=== PATIENT | male | born 1975 | race Caucasian/White ===

== ENCOUNTER 2017-08-15 22:10 | Inpatient (IN) ==
[2017-08-15] MEDS ORDERED: *HR* Promethazine 25 MG/ML VIAL IVP ONE (22:16)
[2017-08-15] MEDS ORDERED: 0.9 % Sodium Chloride 1,000 ML IVC ONE (22:29)
[2017-08-15 22:39] LABS: Basophils % 0.2 %; Hemoglobin 15.6 g/dL (12.9-16.9); Immature Granulocytes % 0.2 % (0-4); Lymphocytes # 0.7 K/mcL (0.6-4.6); Lymphocytes % 7.7 %; Mean Corpuscular HGB Conc 33.2 g/dL (31.6-35.5); Mean Corpuscular Hemoglobin 32.2 pg (28.0-33.3); Mean Corpuscular Volume 96.9 fL (83.0-100.0); Mean Platelet Volume 10.9 fL (9.4-12.4); Monocytes # 0.8 K/mcL (0.0-1.3); Monocytes % 9.8 %; Platelet Count 205 K/mcL (140-400); Red Blood Count 4.85 M/mcL (4.19-5.50); Red Cell Distribution Width 12.8 % (11.5-14.5); Segmented Neutrophils % 82.1 %
[2017-08-15 22:42] LABS: VBG HCO3 12 mEq/L (21-27); VBG PCO2 34 mmHg (41-51); VBG PH 7.15 pH Units (7.32-7.42); VBG PO2 48 mmHg (25-50)
[2017-08-15 22:47] LABS: Activated Partial Thrombo Time 29.5 Seconds (26.0-36.0)
[2017-08-15 22:58] LABS: Bilirubin,Urine Negative (Negative); Blood,Urine Negative (Negative); Clarity,Urine Clear (Clear); Color,Urine Yellow (Yellow); Glucose,Urine (UA) >=1000 mg/dL (Normal); Ketones,Urine 80 mg/dL (Negative); Leukocyte Esterase,Urine Negative (Negative); Nitrite,Urine Negative (Negative); PH,Urine 5.5 pH Units (5.0-8.0); Protein,Urine Negative (Neg-Trace); Specific Gravity,Urine > 1.030 (1.010-1.025); Urobilinogen,Urine Normal (Normal)
[2017-08-15 23:15] LABS: Albumin 4.2 g/dL (3.5-5.7); Albumin/Globulin Ratio 1.3 (1.1-2.2); Bilirubin,Direct 0.2 mg/dL (0.0-0.2); Bilirubin,Indirect 0.3 mg/dL (0.0-1.2); Bilirubin,Total 0.5 mg/dL (0.3-1.0); Calcium 9.6 mg/dL (8.6-10.3); Globulin 3.3 g/dL (2.4-3.5); Total Protein 7.5 g/dL (6.4-8.9); Troponin I 0.05 ng/mL (< 0.04)
--- NOTE | 2017-08-15 23:15 | Emergency Department Note ---
Disposition Clinical Impression: DKA (diabetic ketoacidoses) Qualifiers: Diabetes mellitus type: type 1 Diabetes mellitus complication detail: without coma Qualified Code(s): E10.10 - Type 1 diabetes mellitus with ketoacidosis without coma Disposition: Admitted As Inpatient Condition: Undetermined Referrals: Garth Fortune MD [Primary Care Provider] - General Adult HPI - General Chief complaint: ED Nausea/Vomiting/Diarrhea Stated complaint: N/V Time Seen by Provider: 08/15/17 22:15 Source: patient Mode of arrival: private vehicle Limitations: no limitations Nursing Notes Reviewed: Yes Vital Signs Reviewed: Yes - History of Present Illness HPI Narrative: 42-year-old male with a history of type 1 diabetes presents emergency department for evaluation of nausea and vomiting for the last 2 days. Patient states for the last few days he has had several episodes of emesis and that it appears no matter whether he eats or not, and he also becomes sick if he moves quickly. Patient denies recent illness, fever, chills. Patient states he is unable to eat, drink. He denies constipation, diarrhea, chest pain, syncope, edema, difficulty breathing, cough, wheezes. Patient takes 70/30 insulin twice a day a 25 units he sign. Has not taken his 70/30 insulin this evening. Onset (ago): day(s) Location: abdomen Radiation: non-radiation Pain Severity: severe Pain Scale: 8 Consistency: constant Associated symptoms: Reports: other (see HPI) - Related Data Home Medications Medication Instructions Recorded Confirmed Gabapentin [Neurontin] 300 mg PO BID 02/20/16 02/20/16 Insulin LISPRO [Humalog] 0 unit SQ AD PRN 02/20/16 02/20/16 Insulin Pump/Infus. Set/Meter 0.75 unit CONT 02/21/16 02/21/16 Previous Rx's Medication Instructions Recorded Ondansetron [Zofran] 8 mg PO Q8HR PRN #10 tablet 06/09/16 Ibuprofen [Motrin] 600 mg PO Q8HR PRN #10 tab 08/27/16 Albuterol Sulfate [Albuterol 2 puff IH Q4HR PRN #1 hfa.[email or web address] 04/01/17 Inhaler] levoFLOXacin [Levaquin] 750 mg PO DAILY #5 tablet 04/01/17 Allergies Allergy/AdvReac Type Severity Reaction Status Date / Time No Known Allergies Allergy Verified 04/01/17 07:52 All systems ED: reviewed and negative except as stated. Review of Systems: As Per HPI Constitutional: Denies: fever, chills, weakness Cardiovascular: Denies: chest pain, palpitations, edema, syncope Respiratory: Denies: cough, dyspnea, wheezes, hemoptysis, sputum production Gastrointestinal: Denies: abdominal pain, nausea, vomiting, diarrhea, constipation Neurological: Reports: weakness. Denies: headache, numbness, paresthesias, confusion, abnormal gait Past Medical History - Past Medical History Attestation: Yes The following information was validated with the patient. Source: patient Medical history: Reports: diabetes Surgical history: Reports: vasectomy Psychiatric history: Reports: no psych history - Social History Smoking Status: Current every day smoker Smokeless Tobacco Status: No Alcohol use: Reports: rarely Drug use: Reports: none Physical Exam - General Limitations: no limitations General appearance: alert, in distress, cachectic - Head Head exam: atraumatic, normocephalic, normal inspection - Eye Eye exam: Present: normal appearance, PERRL, EOMI - ENT ENT exam: mucous membranes dry - Neck Neck exam: Present: normal inspection, full ROM - Chest Chest inspection: Present: normal inspection, symmetric chest wall rise - Respiratory Respiratory exam: Present: normal lung sounds bilaterally - Cardiovascular Cardiovascular exam: Present: regular rate, normal rhythm, normal heart sounds - Abdominal Exam Abdominal exam: Present: soft, tenderness. Absent: Non-Tender, distention, guarding, rebound, rigidity Abdominal tenderness: Present: diffuse, moderate - Expanded Lower Extremity Exam Neurovascular/Tendon exam: Present: normal capillary refill. Absent: pulse deficit - Neurological Exam Neurological exam: Present: alert, oriented X3 - Psychiatric Psychiatric exam: Present: normal affect - Skin Skin exam: Present: warm, dry, intact, normal color Course Course Narrative: 42-year-old male presents emergency department for evaluation of nausea, vomiting for the last 2 days. He has been able to tolerate any by mouth intake. Patient appears ill, lethargic, very thin and frail appearing. Respirations are tachypneic partially 28-30 respirations minute, shallow, . Alert and oriented 3. Diffuse abdominal tenderness, no organomegaly, masses. Patient noted with active vomiting, bile colored Lungs clear to auscultate a heart rate tachycardia at 1:30, EKG reveals atrial tachycardia with a flutter. Point of care glucose greater than 600. Immediate concern for diabetic ketoacidosis; consider causes for DKA that could include pneumonia, KS, UTI. We will check labs, EKG, urine, treat nausea and reevaluate. - Reevaluation(s) Reevaluation #1: Labs returned with a pH 7.15, bicarbonate 12, blood glucose 713, troponin 0.05, lactic acid 3.3, potassium 6, sodium 129, BHA greater than 2.00. No sign of anemia, leukocytosis. Patient in DKA, we will initiate insulin drip as potassium will be able to sustain, give 5 units insulin now, continue fluid boluses; will admit to hospitalist services for DKA, acute kidney injury, elevated troponin; excepted to hospitalist services at this time. Time: 23:34 Vital Signs Temperature 97.8 F 08/15/17 22:11 Pulse Rate 130 08/15/17 22:11 Respiratory Rate 14 08/15/17 22:11 Blood Pressure 126/90 08/15/17 22:11 O2 Sat by Pulse Oximetry 96 08/15/17 22:11 Temperature 97.8 F 08/15/17 22:11 Pulse Rate 130 08/15/17 22:11 Respiratory Rate 14 08/15/17 22:11 Blood Pressure 126/90 08/15/17 22:11 O2 Sat by Pulse Oximetry 96 08/15/17 22:11 Oxygen Delivery Oxygen Delivery Room Air Medical Decision Making - Lab Data Result diagrams: 08/15/17 22:16 Lab Results 08/15/17 08/15/17 08/15/17 Range/Units 22:16 22:18 22:18 WBC 8.5 (4.3-11.1) K/mcL RBC 4.85 (4.19-5.50) M/mcL Hgb 15.6 (12.9-16.9) g/dL Hct 47.0 (37.5-50.1) % MCV 96.9 (83.0-100.0) fL MCH 32.2 (28.0-33.3) pg MCHC 33.2 (31.6-35.5) g/dL RDW 12.8 (11.5-14.5) % Plt Count 205 (140-400) K/mcL MPV 10.9 (9.4-12.4) fL Immature Gran % 0.2 (0-4) % Seg Neutrophils % 82.1 % Lymphocytes % 7.7 % Monocytes % 9.8 % Eosinophils % 0.0 % Basophils % 0.2 % Neutrophils # 7.0 (1.6-8.9) K/mcL Lymphocytes # 0.7 (0.6-4.6) K/mcL Monocytes # 0.8 (0.0-1.3) K/mcL Eosinophils # 0.0 (0.0-0.6) K/mcL Basophils # 0.0 (0.0-0.2) K/mcL PT 11.0 (9.4-12.1) Seconds INR 1.0 APTT 29.5 (26.0-36.0) Seconds VBG pH (7.32-7.42) pH Units VBG pCO2 (41-51) mmHg VBG pO2 (25-50) mmHg VBG HCO3 (21-27) mEq/L Lactic Acid (0.5-2.2) mmol/L Beta-Hydroxybutyric Acd > 2.00 H (0.02-0.27) mmol/L Urine Color (Yellow) Urine Clarity (Clear) Urine pH (5.0-8.0) pH Units Ur Specific Welch (1.010-1.025) Urine Protein (Neg-Trace) mg/dL Urine Glucose (UA) (Normal) mg/dL Urine Ketones (Negative) mg/dL Urine Blood (Negative) Urine Nitrite (Negative) Urine Bilirubin (Negative) Urine Urobilinogen (Normal) mg/dL Ur Leukocyte Esterase (Negative) Ur Culture Indicated? (NO) Person Notif of Crit 08/15/17 08/15/17 08/15/17 Range/Units 22:29 22:37 22:40 WBC (4.3-11.1) K/mcL RBC (4.19-5.50) M/mcL Hgb (12.9-16.9) g/dL Hct (37.5-50.1) % MCV (83.0-100.0) fL MCH (28.0-33.3) pg MCHC (31.6-35.5) g/dL RDW (11.5-14.5) % Plt Count (140-400) K/mcL MPV (9.4-12.4) fL Immature Gran % (0-4) % Seg Neutrophils % % Lymphocytes % % Monocytes % % Eosinophils % % Basophils % % Neutrophils # (1.6-8.9) K/mcL Lymphocytes # (0.6-4.6) K/mcL Monocytes # (0.0-1.3) K/mcL Eosinophils # (0.0-0.6) K/mcL Basophils # (0.0-0.2) K/mcL PT (9.4-12.1) Seconds INR APTT (26.0-36.0) Seconds VBG pH 7.15 L* (7.32-7.42) pH Units VBG pCO2 34 L (41-51) mmHg VBG pO2 48 (25-50) mmHg VBG HCO3 12 L (21-27) mEq/L Lactic Acid 3.3 H (0.5-2.2) mmol/L Beta-Hydroxybutyric Acd (0.02-0.27) mmol/L Urine Color Yellow (Yellow) Urine Clarity Clear (Clear) Urine pH 5.5 (5.0-8.0) pH Units Ur Specific Welch > 1.030 H (1.010-1.025) Urine Protein Negative (Neg-Trace) mg/dL Urine Glucose (UA) >=1000 H (Normal) mg/dL Urine Ketones 80 H (Negative) mg/dL Urine Blood Negative (Negative) Urine Nitrite Negative (Negative) Urine Bilirubin Negative (Negative) Urine Urobilinogen Normal (Normal) mg/dL Ur Leukocyte Esterase Negative (Negative) Ur Culture Indicated? NO (NO) Person Notif of David lord
[2017-08-15] MEDS ORDERED: Insulin LISPRO 300 UNITS/3 ML VIAL SQ PRN (23:16)
[2017-08-15] MEDS ORDERED: *HR* Dextrose 50 % in Water (Syg) 50 ML SYRINGE IVP PRN ×2 (23:16→23:45)
[2017-08-15] MEDS ORDERED: Insulin Human Regular 100 UNIT in 0.9 % Sodium Chloride 100 ML IVC SCH (23:30)
[2017-08-15 23:45] LABS: Magnesium 2.7 mg/dL (1.6-2.6); Phosphorous 7.3 mg/dL (2.7-4.5)
[2017-08-15] MEDS ORDERED: Naloxone 0.4 MG/ML INJ IVP PRN (23:45)
--- NOTE | 2017-08-15 23:49 | Internal Med History&Physical ---
<Deandre Purcell - Last Filed: 08/16/17 00:48> Date of Encounter: 08/16/17 Time of Encounter: 23:49 Internal Medicine - H&P: HPI Chief complaint: Nausea and vomiting Admitted From: Emergency Dept Plans for Post Hospital Care: Home History of present illness: Mr. Gong is a 42 year old male with history of insulin-dependent type 1 diabetes mellitus who presented to the ED with 1 day history of nausea and vomiting. He says that yesterday he began feeling nauseated and started vomiting uncontrollably, he has not been able to hold any food or water down since. Nothing seemed to preempt this illness, and he says that he has had no recent illness or viral infection to his knowledge. Associated with this, he does say that he has some abdominal pain which is generalized which started at approximately the time that he began having the symptoms to begin with. Nothing seems to make these symptoms better or worse. It is not worsened by food. The pain is all over his abdomen and does not seem to radiate anywhere. He does use subcutaneous insulin twice a day and he says that his blood glucose has been around 120 every day up until yesterday at which time it started to elevate. He is having no other symptoms at this time. He denies chest pains, shortness of breath, cough, nasal congestion, diarrhea. He denies alcohol use, says that he smokes a few cigarettes a day, and denies any drug use. Past Med Surg Social Fam HX - Past Medical History Medical history: diabetes Psychiatric history: no psych history - Past Surgical History Surgical History: vasectomy - Social History Smoking Status: Current every day smoker Smokeless Tobacco Status: No Alcohol use: rarely Drug use: none - Family History Mother Living Status: Still Living Internal Medicine - H&P: Meds Insulin LISPRO [HumaLOG] 20 units SQ BID 08/15/17 [History] 3 Allergy/AdvReac Type Severity Reaction Status Date / Time No Known Allergies Allergy Verified 04/01/17 07:52 All Systems PM: A 10-system review of systems was performed and is negative for pertinent findings except as documented above in the HPI. Review of systems: Constitutional: Denies fevers, weight loss, generalized fatigue. Admits to chills which started yesterday Head/Neck: Denies VENEGAS, neck stiffness EENT: Denies vision changes/blurriness, rhinorrhea, congestion, sore throat CVS: Denies chest pain, palpitations, THRASHER, orthopnea, edema, PND Pulm: Denies SOB, cough, sputum, hemoptysis, wheezing GI: Admits to generalized abdominal pain, nausea, retractable vomiting : Denies dysuria, increased frequency, urgency, hematuria Heme: Denies ease of bleeding or bruising MSK: Denies joint pain, limited ROM Skin: Denies rashes, ulcers, color changes Neuro: Denies VENEGAS, paresthesias, focal deficits, ataxia - Constitutional Vitals: Temp Pulse Resp BP Pulse Ox 97.8 F 130 14 126/90 96 08/15/17 22:11 08/15/17 22:11 08/15/17 22:11 08/15/17 22:11 08/15/17 22:11 Exam: Gen: Vitals noted. Appears red and mildly distressed. The patient is frail and thin appearing HEENT: PERRL, oropharynx clear, Normocephalic, atraumatic Neck: Supple. No adenopathy. Cardiac: RRR but rapid, no murmur, +S1/S2 Pulmonary: Lung sounds are diminished in the left base Abdomen: Generally soft but with voluntary guarding on palpation generally Back: Nontender throughout. MSK: ROM intact, no joint swelling noted Extremities: no BLE edema, nontender calf, no cyanosis or clubbing Neuro: A&Ox3, moves all extremities, no focal deficits Psych: Affect is flat Internal Med - H&P Results - Labs CBC & Chem 7: 08/15/17 22:16 08/15/17 22:16 - Assessment and plan (1) DKA (diabetic ketoacidosis) Current Visit: Yes Status: Acute Assessment and plan: MARYA, Dr. mcfarland unknown Patient presents with blood glucose of 713, pH 7.15 with anion gap 26 The patient does appear volume depleted on examination and he is tachycardic We will start the patient with a total of a 2 L bolus and then initiate 250mL/ hr fluids per DKA protocol I will check CXR and Blood cultures for possible infectious source Zofran for nausea Qualifiers: Diabetes mellitus type: type 1 Diabetes mellitus complication detail: without coma Qualified Code(s): E10.10 - Type 1 diabetes mellitus with ketoacidosis without coma (2) Acute hyperkalemia Current Visit: Yes Status: Acute Assessment and plan: Potassium is 6.0, likely secondary to DKA We will initiate IV insulin infusion for DKA, which will likely resolve potassium Monitor Q4H BMPs (3) SARAH (acute kidney injury) Current Visit: Yes Status: Acute Assessment and plan: Acute kidney injury secondary to hypovolemia Serum cr 1.73, baseline appears to be ~ 1.0 We will aggressively rehydrate the patient and monitor UOP and BMPs Avoid nephrotoxic agents (4) Tobacco use disorder Current Visit: Yes Status: Chronic Assessment and plan: Nicotine patches (5) DVT prophylaxis Current Visit: Yes Status: Acute Assessment and plan: SQ Lovenox - Time Spent With Patient Total time spent is greater than 50% in coordination of care (as documented) at patient's floor/unit and/or counseling patient: <Meli Moses - Last Filed: 08/16/17 03:14> Date of Encounter: 08/16/17 Internal Medicine - H&P: HPI History of present illness: Mr. Gong is a 42 year old male All Systems PM: A 10-system review of systems was performed and is negative for pertinent findings except as documented above in the HPI. - Constitutional Vitals: Temp Pulse Resp BP Pulse Ox 98.0 F 112 20 120/67 94 08/16/17 00:30 08/16/17 00:30 08/16/17 00:30 08/16/17 00:30 08/16/17 00:30 Internal Med - H&P Results - Labs CBC & Chem 7: 08/15/17 22:16 08/16/17 00:51 Labs: BMP 08/16/17 00:51 Sodium 131 L Potassium 4.9 Chloride 98 Carbon Dioxide 10 L* BUN 44 H Creatinine 1.65 H Glucose 610 H* Calcium 8.7 - Impressions ITS Impressions Chest X-Ray 08/16/17 00:29 IMPRESSION: Left basilar nodularity may represent an atypical pneumonia. D/ / Osito Greer MD / Osito Greer MD Interpreting Provider: Osito Greer MD - Attending Attestation I have seen and examined this patient independently. I have discussed with resident physician Dr. Purcell regarding the management plan. Agree with the documentation. - Time Spent With Patient Total time spent is greater than 50% in coordination of care (as documented) at patient's floor/unit and/or counseling patient:
--- NOTE | 2017-08-16 00:03 | Emergency Department Note ---
Disposition Clinical Impression: DKA (diabetic ketoacidoses) Qualifiers: Diabetes mellitus type: type 1 Diabetes mellitus complication detail: without coma Qualified Code(s): E10.10 - Type 1 diabetes mellitus with ketoacidosis without coma Disposition: Admitted As Inpatient Condition: Undetermined General Adult HPI - General Chief complaint: ED Nausea/Vomiting/Diarrhea Stated complaint: N/V Time Seen by Provider: 08/15/17 22:15 Source: patient Mode of arrival: private vehicle Limitations: no limitations Nursing Notes Reviewed: Yes Vital Signs Reviewed: Yes - History of Present Illness Location: abdomen Pain Scale: 0 Associated symptoms: Reports: other (see HPI) - Related Data Home Medications Medication Instructions Recorded Confirmed Insulin LISPRO [HumaLOG] 20 units SQ BID 08/15/17 08/15/17 Allergies Allergy/AdvReac Type Severity Reaction Status Date / Time No Known Allergies Allergy Verified 04/01/17 07:52 Constitutional: Denies: fever, chills, weakness Cardiovascular: Denies: chest pain, palpitations, edema, syncope Respiratory: Denies: cough, dyspnea, wheezes, hemoptysis, sputum production Gastrointestinal: Denies: abdominal pain, nausea, vomiting, diarrhea, constipation Neurological: Reports: weakness. Denies: headache, numbness, paresthesias, confusion, abnormal gait Past Medical History - Past Medical History Medical history: Reports: diabetes Surgical history: Reports: vasectomy Psychiatric history: Reports: no psych history - Social History Smoking Status: Current every day smoker Smokeless Tobacco Status: No Alcohol use: Reports: rarely Drug use: Reports: none Physical Exam - General Limitations: no limitations General appearance: alert, in distress, cachectic Course Vital Signs Temperature 97.8 F 08/15/17 22:11 Pulse Rate 130 08/15/17 22:11 Respiratory Rate 14 08/15/17 22:11 Blood Pressure 126/90 08/15/17 22:11 O2 Sat by Pulse Oximetry 96 08/15/17 22:11 Temperature 97.8 F 08/15/17 22:11 Pulse Rate 130 08/15/17 22:11 Respiratory Rate 16 08/15/17 23:55 Blood Pressure 120/65 08/15/17 23:55 O2 Sat by Pulse Oximetry 96 08/15/17 22:11 Oxygen Delivery Oxygen Delivery Room Air Medical Decision Making - Lab Data Result diagrams: 08/15/17 22:16 08/15/17 22:16 Lab Results 08/15/17 08/15/17 08/15/17 Range/Units 22:16 22:16 22:18 WBC 8.5 (4.3-11.1) K/mcL RBC 4.85 (4.19-5.50) M/mcL Hgb 15.6 (12.9-16.9) g/dL Hct 47.0 (37.5-50.1) % MCV 96.9 (83.0-100.0) fL MCH 32.2 (28.0-33.3) pg MCHC 33.2 (31.6-35.5) g/dL RDW 12.8 (11.5-14.5) % Plt Count 205 (140-400) K/mcL MPV 10.9 (9.4-12.4) fL Immature Gran % 0.2 (0-4) % Seg Neutrophils % 82.1 % Lymphocytes % 7.7 % Monocytes % 9.8 % Eosinophils % 0.0 % Basophils % 0.2 % Neutrophils # 7.0 (1.6-8.9) K/mcL Lymphocytes # 0.7 (0.6-4.6) K/mcL Monocytes # 0.8 (0.0-1.3) K/mcL Eosinophils # 0.0 (0.0-0.6) K/mcL Basophils # 0.0 (0.0-0.2) K/mcL PT 11.0 (9.4-12.1) Seconds INR 1.0 APTT 29.5 (26.0-36.0) Seconds VBG pH (7.32-7.42) pH Units VBG pCO2 (41-51) mmHg VBG pO2 (25-50) mmHg VBG HCO3 (21-27) mEq/L Sodium 129 L (136-145) mEq/L Potassium 6.0 H (3.5-5.1) mEq/L Chloride 92 L (98-107) mEq/L Carbon Dioxide 11 L (23-29) mEq/L BUN 42 H (6-20) mg/dL Creatinine 1.73 H (0.70-1.30) mg/dL Est GFR ( Amer) 53 L (> 60) Est GFR (Non-Af Amer) 43 L (> 60) BUN/Creatinine Ratio 24 (6-26) Glucose 713 H* (70-105) mg/dL Calculated Osmolality 313 H (280-300) Lactic Acid (0.5-2.2) mmol/L Calcium 9.6 (8.6-10.3) mg/dL Phosphorus 7.3 H (2.7-4.5) mg/dL Magnesium 2.7 H (1.6-2.6) mg/dL Total Bilirubin 0.5 (0.3-1.0) mg/dL Direct Bilirubin 0.2 (0.0-0.2) mg/dL Indirect Bilirubin 0.3 (0.0-1.2) mg/dL AST 17 (13-39) Units/L ALT 18 (7-52) Units/L Alkaline Phosphatase 97 (34-104) Units/L Troponin I 0.05 H* (< 0.04) ng/mL Serum Total Protein 7.5 (6.4-8.9) g/dL Albumin 4.2 (3.5-5.7) g/dL Globulin 3.3 (2.4-3.5) g/dL Albumin/Globulin Ratio 1.3 (1.1-2.2) Lipase 4 L (11-82) Units/L Beta-Hydroxybutyric Acd (0.02-0.27) mmol/L Urine Color (Yellow) Urine Clarity (Clear) Urine pH (5.0-8.0) pH Units Ur Specific Holt (1.010-1.025) Urine Protein (Neg-Trace) mg/dL Urine Glucose (UA) (Normal) mg/dL Urine Ketones (Negative) mg/dL Urine Blood (Negative) Urine Nitrite (Negative) Urine Bilirubin (Negative) Urine Urobilinogen (Normal) mg/dL Ur Leukocyte Esterase (Negative) Ur Culture Indicated? (NO) Person Notif of Crit 08/15/17 08/15/17 08/15/17 Range/Units 22:18 22:29 22:37 WBC (4.3-11.1) K/mcL RBC (4.19-5.50) M/mcL Hgb (12.9-16.9) g/dL Hct (37.5-50.1) % MCV (83.0-100.0) fL MCH (28.0-33.3) pg MCHC (31.6-35.5) g/dL RDW (11.5-14.5) % Plt Count (140-400) K/mcL MPV (9.4-12.4) fL Immature Gran % (0-4) % Seg Neutrophils % % Lymphocytes % % Monocytes % % Eosinophils % % Basophils % % Neutrophils # (1.6-8.9) K/mcL Lymphocytes # (0.6-4.6) K/mcL Monocytes # (0.0-1.3) K/mcL Eosinophils # (0.0-0.6) K/mcL Basophils # (0.0-0.2) K/mcL PT (9.4-12.1) Seconds INR APTT (26.0-36.0) Seconds VBG pH 7.15 L* (7.32-7.42) pH Units VBG pCO2 34 L (41-51) mmHg VBG pO2 48 (25-50) mmHg VBG HCO3 12 L (21-27) mEq/L Sodium (136-145) mEq/L Potassium (3.5-5.1) mEq/L Chloride (98-107) mEq/L Carbon Dioxide (23-29) mEq/L BUN (6-20) mg/dL Creatinine (0.70-1.30) mg/dL Est GFR ( Amer) (> 60) Est GFR (Non-Af Amer) (> 60) BUN/Creatinine Ratio (6-26) Glucose (70-105) mg/dL Calculated Osmolality (280-300) Lactic Acid 3.3 H (0.5-2.2) mmol/L Calcium (8.6-10.3) mg/dL Phosphorus (2.7-4.5) mg/dL Magnesium (1.6-2.6) mg/dL Total Bilirubin (0.3-1.0) mg/dL Direct Bilirubin (0.0-0.2) mg/dL Indirect Bilirubin (0.0-1.2) mg/dL AST (13-39) Units/L ALT (7-52) Units/L Alkaline Phosphatase (34-104) Units/L Troponin I (< 0.04) ng/mL Serum Total Protein (6.4-8.9) g/dL Albumin (3.5-5.7) g/dL Globulin (2.4-3.5) g/dL Albumin/Globulin Ratio (1.1-2.2) Lipase (11-82) Units/L Beta-Hydroxybutyric Acd > 2.00 H (0.02-0.27) mmol/L Urine Color (Yellow) Urine Clarity (Clear) Urine pH (5.0-8.0) pH Units Ur Specific Holt (1.010-1.025) Urine Protein (Neg-Trace) mg/dL Urine Glucose (UA) (Normal) mg/dL Urine Ketones (Negative) mg/dL Urine Blood (Negative) Urine Nitrite (Negative) Urine Bilirubin (Negative) Urine Urobilinogen (Normal) mg/dL Ur Leukocyte Esterase (Negative) Ur Culture Indicated? (NO) Person Notif of David lord 08/15/17 Range/Units 22:40 WBC (4.3-11.1) K/mcL RBC (4.19-5.50) M/mcL Hgb (12.9-16.9) g/dL Hct (37.5-50.1) % MCV (83.0-100.0) fL MCH (28.0-33.3) pg MCHC (31.6-35.5) g/dL RDW (11.5-14.5) % Plt Count (140-400) K/mcL MPV (9.4-12.4) fL Immature Gran % (0-4) % Seg Neutrophils % % Lymphocytes % % Monocytes % % Eosinophils % % Basophils % % Neutrophils # (1.6-8.9) K/mcL Lymphocytes # (0.6-4.6) K/mcL Monocytes # (0.0-1.3) K/mcL Eosinophils # (0.0-0.6) K/mcL Basophils # (0.0-0.2) K/mcL PT (9.4-12.1) Seconds INR APTT (26.0-36.0) Seconds VBG pH (7.32-7.42) pH Units VBG pCO2 (41-51) mmHg VBG pO2 (25-50) mmHg VBG HCO3 (21-27) mEq/L Sodium (136-145) mEq/L Potassium (3.5-5.1) mEq/L Chloride (98-107) mEq/L Carbon Dioxide (23-29) mEq/L BUN (6-20) mg/dL Creatinine (0.70-1.30) mg/dL Est GFR ( Amer) (> 60) Est GFR (Non-Af Amer) (> 60) BUN/Creatinine Ratio (6-26) Glucose (70-105) mg/dL Calculated Osmolality (280-300) Lactic Acid (0.5-2.2) mmol/L Calcium (8.6-10.3) mg/dL Phosphorus (2.7-4.5) mg/dL Magnesium (1.6-2.6) mg/dL Total Bilirubin (0.3-1.0) mg/dL Direct Bilirubin (0.0-0.2) mg/dL Indirect Bilirubin (0.0-1.2) mg/dL AST (13-39) Units/L ALT (7-52) Units/L Alkaline Phosphatase (34-104) Units/L Troponin I (< 0.04) ng/mL Serum Total Protein (6.4-8.9) g/dL Albumin (3.5-5.7) g/dL Globulin (2.4-3.5) g/dL Albumin/Globulin Ratio (1.1-2.2) Lipase (11-82) Units/L Beta-Hydroxybutyric Acd (0.02-0.27) mmol/L Urine Color Yellow (Yellow) Urine Clarity Clear (Clear) Urine pH 5.5 (5.0-8.0) pH Units Ur Specific Holt > 1.030 H (1.010-1.025) Urine Protein Negative (Neg-Trace) mg/dL Urine Glucose (UA) >=1000 H (Normal) mg/dL Urine Ketones 80 H (Negative) mg/dL Urine Blood Negative (Negative) Urine Nitrite Negative (Negative) Urine Bilirubin Negative (Negative) Urine Urobilinogen Normal (Normal) mg/dL Ur Leukocyte Esterase Negative (Negative) Ur Culture Indicated? NO (NO) Person Notif of Crit Critical Care Time Critical Care Time: No Attestation Statement - Attestation Attestation: I, Michael Lundberg MD, personally evaluated this patient and discussed their management with the midlevel provicer, PAC/WIRE BENDER. I reviewed the midlevel provider 's note and agree with the documented findings, medical decision making, and plan of care. 42-year-old male with history of insulin-dependent diabetes presents complaining of nausea and vomiting yesterday and today. He complains of generalized body aches and pain. Crampy abdominal pain. No fever. No GI bleed symptoms. He has felt mildly short of breath. On examination patient is a well-developed thin male in no acute distress. He is pale and appears ill. No cyanosis or diaphoresis. Breath sounds are clear and equal bilaterally. Heart regular with a moderate tachycardia. Abdomen is soft with increased bowel sounds. Mild diffuse tenderness. Labs reviewed and consistent with DKA. Fluids and insulin infusion initiated. The hospitalist, Dr. Moses, was consulted and accepted admission of the patient.
[2017-08-16] MEDS ORDERED: 0.9 % Sodium Chloride 1,000 ML IVC ONE (00:04)
[2017-08-16] MEDS ORDERED: 0.9 % Sodium Chloride 1,000 ML IVC SCH ×2 (00:15→03:30)
[2017-08-16] MEDS ORDERED: 0.9 % Sodium Chloride 1,000 ML IVC PRN ×2 (00:42→03:24)
[2017-08-16] MEDS ORDERED: Insulin LISPRO 300 UNITS/3 ML VIAL SQ PRN (00:42)
[2017-08-16] MEDS ORDERED: D5% in 0.45% NACL 1,000 ML IVC PRN (00:42)
[2017-08-16] MEDS ORDERED: D5% in 0.45% NACL w KCl 20 MEQ/1,000 ML MLS IVC PRN (00:42)
[2017-08-16] MEDS ORDERED: *HR* Dextrose 50 % in Water (Syg) 50 ML SYRINGE IVP PRN ×2 (00:42→09:08)
[2017-08-16] MEDS ORDERED: Insulin Human Regular 100 UNIT in 0.9 % Sodium Chloride 100 ML IVC SCH (00:45)
[2017-08-16 01:28] LABS: Calcium 8.7 mg/dL (8.6-10.3); Potassium 4.9 mEq/L (3.5-5.1)
[2017-08-16] MEDS: 0.9 % Sodium Chloride w KCl 20 MEQ/1,000 ML MLS IVC PRN ×2 (02:00→04:14)
[2017-08-16 04:57] LABS: ABG Base Excess -7 mEq/L (-2 to 3); ABG HCO3 21 mEq/L (21-27); ABG Oxygen Saturation 89 % (95-98); ABG PCO2 50 mmHg (35-45); ABG PH 7.23 pH Units (7.32-7.45); ABG PO2 68 mmHg (85-104); ABG TCO2 23 mEq/L (20-26)
[2017-08-16 05:08] LABS: BUN/Creatinine Ratio 30 (6-26); Blood Urea Nitrogen 39 mg/dL (6-20); Calcium 8.1 mg/dL (8.6-10.3); Carbon Dioxide 19 mEq/L (23-29); Chloride 108 mEq/L (98-107); Glucose 362 mg/dL (70-105); Osmolality,Calculated 304 (280-300); Potassium 5.2 mEq/L (3.5-5.1); Sodium 135 mEq/L (136-145); eGFR For African Americans > 60 (> 60); eGFR For Non-African Americans > 60 (> 60)
[2017-08-16] MEDS: GuaiFENesin Liq 200 MG/10 ML UDC PO PRN (05:59)
[2017-08-16] MEDS: *HR* Heparin 5,000 UNIT/ML VIAL SQ SCH ×2 (05:59→17:47)
[2017-08-16] MEDS ORDERED: *HR* Enoxaparin 40 MG/0.4 ML SYRINGE SQ SCH (06:00)
[2017-08-16 06:13] LABS: Basophils % 0.3 %; Eosinophils % 0.1 %; Hematocrit 36.8 % (37.5-50.1); Immature Granulocytes % 0.1 % (0-4); Lymphocytes # 1.2 K/mcL (0.6-4.6); Lymphocytes % 16.5 %; Mean Corpuscular HGB Conc 34.2 g/dL (31.6-35.5); Mean Corpuscular Hemoglobin 31.5 pg (28.0-33.3); Mean Platelet Volume 10.1 fL (9.4-12.4); Monocytes # 0.7 K/mcL (0.0-1.3); Monocytes % 9.8 %; Neutrophils # 5.2 K/mcL (1.6-8.9); Platelet Count 191 K/mcL (140-400); Red Cell Distribution Width 12.7 % (11.5-14.5); Segmented Neutrophils % 73.2 %
[2017-08-16 06:15] LABS: Hemoglobin 12.6 g/dL (12.9-16.9)
[2017-08-16 07:35] LABS: Estimated Average Glucose 298 mg/dl
--- NOTE | 2017-08-16 08:50 | Internal Med Progress Note ---
Date of Encounter: 08/16/17 Time of Encounter: 08:30 - Assessment and plan (1) DKA (diabetic ketoacidosis) Current Visit: Yes Status: Acute Assessment and plan: Started on insulin drip overnight for DKA. Gap was reportedly 26. Gap has losed this am to 8. Will transition to subcutaneous short and long acting insulin Qualifiers: Diabetes mellitus type: type 1 Diabetes mellitus complication detail: without coma Qualified Code(s): E10.10 - Type 1 diabetes mellitus with ketoacidosis without coma (2) Community acquired bacterial pneumonia Current Visit: Yes Status: Acute Assessment and plan: CXR shows evidence of basilar nodularity suggestive of atypical pneumonia. f/u blood cultures. Start on ceftriaxone and azithromycin (3) Acute renal failure Current Visit: No Status: Acute Assessment and plan: Iv fluid hydration. Creatinine has improved Qualifiers: Acute renal failure type: unspecified Qualified Code(s): N17.9 - Acute kidney failure, unspecified (4) Acute hyperkalemia Current Visit: Yes Status: Acute Assessment and plan: Resolved with insulin. Likely from DKA (5) DVT prophylaxis Current Visit: Yes Status: Acute Assessment and plan: Continue sc heparin (6) Tobacco use disorder Current Visit: Yes Status: Chronic Assessment and plan: Counseled to quit - Time Spent With Patient Total time spent is greater than 50% in coordination of care (as documented) at patient's floor/unit and/or counseling patient: - Subjective Interval history: Admitted overnight for DKA - Constitutional Vitals: Temp Pulse Resp BP Pulse Ox 97.8 F 96 16 108/64 95 08/16/17 07:55 08/16/17 07:55 08/16/17 07:55 08/16/17 07:55 08/16/17 07:55 - Head Head exam: Present: atraumatic, normocephalic - Eye Eye exam: Present: PERRL, conjuntiva pink, sclera anicteric Pupils: Present: PERRL - Neck Neck exam general surgery: Present: supple, trachea midline. Absent: lymphadenopathy - Respiratory Respiratory exam: Present: CTAB. Absent: accessory muscle use, rales, rhonchi, wheezes - Cardiovascular Cardiovascular exam: Present: RRR, +S1, +S2. Absent: diastolic murmur, gallop, rubs, systolic murmur - GI/Abdominal GI/Abdominal exam: Present: normal bowel sounds, soft, no peritoneal signs. Absent: distended, tenderness - Extremities Exam Extremities exam: Present: warm, radial pulses palpable and symmetrical. Absent : calf tenderness, cyanotic, pedal edema - Neurological Exam Neurological exam: Present: CN II-XII intact, oriented X3, no focal deficits. Absent: pronater drift, facial droop, speech deficit - Skin Skin exam: Present: dry, intact Internal Medicine: Result - Labs CBC & Chem 7: 08/16/17 05:56 08/16/17 08:53 Labs: Short CBC 08/16/17 Range/Units 05:56 WBC 7.2 (4.3-11.1) K/mcL Hgb 12.6 L D (12.9-16.9) g/dL Hct 36.8 L (37.5-50.1) % Plt Count 191 (140-400) K/mcL Neutrophils # 5.2 (1.6-8.9) K/mcL BMP 08/16/17 08/16/17 00:51 04:37 Sodium 131 L 135 L Potassium 4.9 5.2 H Chloride 98 108 H Carbon Dioxide 10 L* 19 L BUN 44 H 39 H Creatinine 1.65 H 1.30 Glucose 610 H* 362 H Calcium 8.7 8.1 L - ABG Interpretation ABG results: ABG ABG pH 7.23 pH Units (7.32-7.45) L 08/16/17 04:54 ABG pCO2 50 mmHg (35-45) H 08/16/17 04:54 ABG pO2 68 mmHg (85-104) L 08/16/17 04:54 ABG O2 Saturation 89 % (95-98) L 08/16/17 04:54 PT/INR, D-dimer PT 11.0 Seconds (9.4-12.1) 08/15/17 22:18 - Impressions Impressions Chest X-Ray 08/16/17 00:29 IMPRESSION: Left basilar nodularity may represent an atypical pneumonia. D/ / Osito Greer MD / Osito Greer MD Interpreting Provider: Osito Greer MD Consult Discharge Plan - Plan Referrals: Seidensticker,Garth F, MD [Primary Care Provider] -
[2017-08-16] MEDS ORDERED: D5% in Water 1,000 ML IVC PRN (09:08)
[2017-08-16] MEDS ORDERED: Dextrose Gel 15 GM/37.5 ML TUBE PO PRN ×2 (09:08)
[2017-08-16] MEDS ORDERED: Insulin DETEMIR 100 UNIT/ML X5UNITS SQ ONE (09:13)
[2017-08-16 09:51] LABS: BUN/Creatinine Ratio 31 (6-26); Blood Urea Nitrogen 33 mg/dL (6-20); Calcium 8.3 mg/dL (8.6-10.3); Carbon Dioxide 23 mEq/L (23-29); Chloride 112 mEq/L (98-107); Glucose 199 mg/dL (70-105); Osmolality,Calculated 303 (280-300); Potassium 4.8 mEq/L (3.5-5.1); Sodium 140 mEq/L (136-145); eGFR For African Americans > 60 (> 60); eGFR For Non-African Americans > 60 (> 60)
[2017-08-16] MEDS: cefTRIAXone 1,000 MG in Water for inj. (sterile) 20 ML 10 ML IVP SCH (10:25)
[2017-08-16] MEDS: Azithromycin 500 MG in D5% in Water 250 ML IVPB SCH (10:25)
[2017-08-16] MEDS ORDERED: Ondansetron 4 MG/2 ML VIAL IVP PRN (10:35)
[2017-08-16] MEDS: Ipratropium/Albuterol Neb 3 ML IH SCH ×3 (11:08→21:34)
[2017-08-16] MEDS: Insulin LISPRO 300 UNITS/3 ML VIAL SQ SCH ×5 (12:42→20:02)
[2017-08-16 13:40] LABS: BUN/Creatinine Ratio 29 (6-26); Blood Urea Nitrogen 30 mg/dL (6-20); Calcium 8.3 mg/dL (8.6-10.3); Carbon Dioxide 23 mEq/L (23-29); Chloride 109 mEq/L (98-107); Glucose 185 mg/dL (70-105); Osmolality,Calculated 297 (280-300); Potassium 4.4 mEq/L (3.5-5.1); Sodium 138 mEq/L (136-145); eGFR For African Americans > 60 (> 60); eGFR For Non-African Americans > 60 (> 60)
[2017-08-16 17:22] LABS: BUN/Creatinine Ratio 28 (6-26); Blood Urea Nitrogen 27 mg/dL (6-20); Calcium 8.2 mg/dL (8.6-10.3); Carbon Dioxide 21 mEq/L (23-29); Chloride 109 mEq/L (98-107); Glucose 105 mg/dL (70-105); Osmolality,Calculated 289 (280-300); Sodium 137 mEq/L (136-145); eGFR For African Americans > 60 (> 60); eGFR For Non-African Americans > 60 (> 60)
[2017-08-16 20:57] LABS: BUN/Creatinine Ratio 26 (6-26); Blood Urea Nitrogen 23 mg/dL (6-20); Calcium 8.1 mg/dL (8.6-10.3); Carbon Dioxide 23 mEq/L (23-29); Chloride 110 mEq/L (98-107); Glucose 93 mg/dL (70-105); Osmolality,Calculated 289 (280-300); Potassium 3.9 mEq/L (3.5-5.1); Sodium 138 mEq/L (136-145); eGFR For African Americans > 60 (> 60); eGFR For Non-African Americans > 60 (> 60)
[2017-08-16] MEDS: Insulin DETEMIR 100 UNIT/ML X5UNITS SQ SCH (22:38)
[2017-08-16] MEDS ORDERED: Ibuprofen 600 MG TABLET PO PRN (23:01)
[2017-08-16] MEDS: Ibuprofen 600 MG TABLET PO PRN (23:49)
[2017-08-17 01:24] LABS: BUN/Creatinine Ratio 26 (6-26); Blood Urea Nitrogen 21 mg/dL (6-20); Carbon Dioxide 20 mEq/L (23-29); Chloride 107 mEq/L (98-107); Glucose 200 mg/dL (70-105); Osmolality,Calculated 291 (280-300); Potassium 3.9 mEq/L (3.5-5.1); Sodium 136 mEq/L (136-145); eGFR For African Americans > 60 (> 60); eGFR For Non-African Americans > 60 (> 60)
[2017-08-17 04:23] LABS: Basophils % 0.1 %; Eosinophils # 0.1 K/mcL (0.0-0.6); Eosinophils % 0.6 %; Hematocrit 34.8 % (37.5-50.1); Hemoglobin 11.8 g/dL (12.9-16.9); Immature Granulocytes % 0.4 % (0-4); Lymphocytes # 1.3 K/mcL (0.6-4.6); Lymphocytes % 16.6 %; Mean Corpuscular HGB Conc 33.9 g/dL (31.6-35.5); Mean Corpuscular Hemoglobin 31.1 pg (28.0-33.3); Mean Corpuscular Volume 91.8 fL (83.0-100.0); Mean Platelet Volume 10.5 fL (9.4-12.4); Monocytes # 0.8 K/mcL (0.0-1.3); Monocytes % 10.3 %; Neutrophils # 5.6 K/mcL (1.6-8.9); Platelet Count 166 K/mcL (140-400); Red Blood Count 3.79 M/mcL (4.19-5.50)
[2017-08-17] MEDS: Ipratropium/Albuterol Neb 3 ML IH SCH ×4 (04:24→21:34)
[2017-08-17 04:38] LABS: BUN/Creatinine Ratio 25 (6-26); Blood Urea Nitrogen 20 mg/dL (6-20); Calcium 8.2 mg/dL (8.6-10.3); Carbon Dioxide 24 mEq/L (23-29); Chloride 107 mEq/L (98-107); Glucose 158 mg/dL (70-105); Osmolality,Calculated 294 (280-300); Sodium 139 mEq/L (136-145); eGFR For African Americans > 60 (> 60); eGFR For Non-African Americans > 60 (> 60)
[2017-08-17] MEDS: *HR* Heparin 5,000 UNIT/ML VIAL SQ SCH ×2 (06:31→17:07)
[2017-08-17] MEDS: Insulin LISPRO 300 UNITS/3 ML VIAL SQ SCH ×7 (07:24→20:29)
--- NOTE | 2017-08-17 07:32 | Internal Med Progress Note ---
Date of Encounter: 08/17/17 Time of Encounter: 07:30 - Assessment and plan (1) DKA (diabetic ketoacidosis) Current Visit: Yes Status: Acute Assessment and plan: Transitioned off insulin drip in last 24hrs. continue on short and long acting insulin. Monitor fingersticks Qualifiers: Diabetes mellitus type: type 1 Diabetes mellitus complication detail: without coma Qualified Code(s): E10.10 - Type 1 diabetes mellitus with ketoacidosis without coma (2) Community acquired bacterial pneumonia Current Visit: Yes Status: Acute Assessment and plan: CXR shows evidence of basilar nodularity suggestive of atypical pneumonia. f/u blood cultures. Continue on ceftriaxone and azithromycin. Plan to complete 3 day course (3) Acute renal failure Current Visit: No Status: Acute Assessment and plan: Iv fluid hydration. Creatinine has improved Qualifiers: Acute renal failure type: unspecified Qualified Code(s): N17.9 - Acute kidney failure, unspecified (4) Acute hyperkalemia Current Visit: Yes Status: Acute Assessment and plan: Resolved with insulin. Likely from DKA (5) DVT prophylaxis Current Visit: Yes Status: Acute Assessment and plan: Continue sc heparin (6) Tobacco use disorder Current Visit: Yes Status: Chronic Assessment and plan: Counseled to quit - Time Spent With Patient Total time spent is greater than 50% in coordination of care (as documented) at patient's floor/unit and/or counseling patient: - Subjective Interval history: No acute events overnight - Constitutional Vitals: Temp Pulse Resp BP Pulse Ox 98.3 F 82 18 108/61 95 08/17/17 07:02 08/17/17 07:02 08/17/17 07:02 08/17/17 07:02 08/17/17 07:02 - Head Head exam: Present: atraumatic, normocephalic - Eye Eye exam: Present: PERRL, conjuntiva pink, sclera anicteric Pupils: Present: PERRL - Neck Neck exam general surgery: Present: supple, trachea midline. Absent: lymphadenopathy - Respiratory Respiratory exam: Present: CTAB. Absent: accessory muscle use, rales, rhonchi, wheezes - Cardiovascular Cardiovascular exam: Present: RRR, +S1, +S2. Absent: diastolic murmur, gallop, rubs, systolic murmur - GI/Abdominal GI/Abdominal exam: Present: normal bowel sounds, soft, no peritoneal signs. Absent: distended, tenderness - Extremities Exam Extremities exam: Present: warm, radial pulses palpable and symmetrical. Absent : calf tenderness, cyanotic, pedal edema - Neurological Exam Neurological exam: Present: CN II-XII intact, oriented X3, no focal deficits. Absent: pronater drift, facial droop, speech deficit - Skin Skin exam: Present: dry, intact Internal Medicine: Result - Labs CBC & Chem 7: 08/17/17 03:33 08/17/17 03:33 Labs: Short CBC 08/17/17 Range/Units 03:33 WBC 7.8 (4.3-11.1) K/mcL Hgb 11.8 L (12.9-16.9) g/dL Hct 34.8 L (37.5-50.1) % Plt Count 166 (140-400) K/mcL Neutrophils # 5.6 (1.6-8.9) K/mcL BMP 08/16/17 08/16/17 08/16/17 08:53 13:10 16:49 Sodium 140 138 137 Potassium 4.8 4.4 4.0 Chloride 112 H 109 H 109 H Carbon Dioxide 23 23 21 L BUN 33 H 30 H 27 H Creatinine 1.08 1.04 0.95 Glucose 199 H 185 H 105 Calcium 8.3 L 8.3 L 8.2 L 08/16/17 08/17/17 08/17/17 20:17 00:42 03:33 Sodium 138 136 139 Potassium 3.9 3.9 4.0 Chloride 110 H 107 107 Carbon Dioxide 23 20 L 24 BUN 23 H 21 H 20 Creatinine 0.87 0.82 0.79 Glucose 93 200 H 158 H Calcium 8.1 L 8.0 L 8.2 L - ABG Interpretation ABG results: ABG ABG pH 7.23 pH Units (7.32-7.45) L 08/16/17 04:54 ABG pCO2 50 mmHg (35-45) H 08/16/17 04:54 ABG pO2 68 mmHg (85-104) L 08/16/17 04:54 ABG O2 Saturation 89 % (95-98) L 08/16/17 04:54 PT/INR, D-dimer PT 11.0 Seconds (9.4-12.1) 08/15/17 22:18 Consult Discharge Plan - Plan Referrals: aGrth Fortune MD [Primary Care Provider] - (SENT REQUEST ON 08-17-17 @ [phone])
[2017-08-17] MEDS: cefTRIAXone 1,000 MG in Water for inj. (sterile) 20 ML 10 ML IVP SCH (09:23)
[2017-08-17] MEDS: Azithromycin 500 MG in D5% in Water 250 ML IVPB SCH (09:31)
--- NOTE | 2017-08-17 10:15 | Electrocardiograph Report ---
[address] [place], [place] [address] Test Date: 2017-08-15 Pat Name: Noe Gong Department: 103 Room: 2N03 Gender: Fleet Maintenance Foreman: : 1975 Requested By: [id number] Order Number: [id number] Reading MD: Olya Beltran Measurements Intervals [place] Rate: 119 P: MD: 0 QRS: 59 QRSD: 86 T: 49 QT: 282 QTc: 352 Interpretive Statements SINUS TACHYCARDIA ANTEROSEPTAL MYOCARDIAL INFARCTION [40+ ms Q WAVE IN V1-V4], OF INDETERMINATE AGE Electronically Signed On 08-17-2017 10:14:18 EDT by Olya Beltran
[2017-08-17] MEDS: Insulin DETEMIR 100 UNIT/ML X5UNITS SQ SCH (20:29)
[2017-08-17] MEDS: Ibuprofen 600 MG TABLET PO PRN (23:30)
[2017-08-17] MEDS: GuaiFENesin Liq 200 MG/10 ML UDC PO PRN (23:31)
[2017-08-18] MEDS: Ipratropium/Albuterol Neb 3 ML IH SCH ×2 (04:19→10:48)
[2017-08-18 04:37] LABS: Basophils % 0.3 %; Eosinophils # 0.1 K/mcL (0.0-0.6); Eosinophils % 2.4 %; Hematocrit 36.6 % (37.5-50.1); Hemoglobin 12.5 g/dL (12.9-16.9); Immature Granulocytes % 0.9 % (0-4); Lymphocytes # 1.2 K/mcL (0.6-4.6); Lymphocytes % 21.4 %; Mean Corpuscular HGB Conc 34.2 g/dL (31.6-35.5); Mean Corpuscular Hemoglobin 31.3 pg (28.0-33.3); Mean Corpuscular Volume 91.5 fL (83.0-100.0); Mean Platelet Volume 10.6 fL (9.4-12.4); Monocytes # 0.7 K/mcL (0.0-1.3); Monocytes % 12.8 %; Neutrophils # 3.6 K/mcL (1.6-8.9); Platelet Count 164 K/mcL (140-400); Red Cell Distribution Width 12.9 % (11.5-14.5); Segmented Neutrophils % 62.2 %
[2017-08-18 04:53] LABS: BUN/Creatinine Ratio 19 (6-26); Blood Urea Nitrogen 13 mg/dL (6-20); Calcium 8.7 mg/dL (8.6-10.3); Carbon Dioxide 27 mEq/L (23-29); Chloride 105 mEq/L (98-107); Glucose 80 mg/dL (70-105); Osmolality,Calculated 285 (280-300); Potassium 3.8 mEq/L (3.5-5.1); Sodium 138 mEq/L (136-145); eGFR For African Americans > 60 (> 60); eGFR For Non-African Americans > 60 (> 60)
[2017-08-18] MEDS: *HR* Heparin 5,000 UNIT/ML VIAL SQ SCH (05:42)
[2017-08-18] MEDS: cefTRIAXone 1,000 MG in Water for inj. (sterile) 20 ML 10 ML IVP SCH (07:43)
[2017-08-18] MEDS: Insulin LISPRO 300 UNITS/3 ML VIAL SQ SCH ×4 (07:52→11:55)
[2017-08-18] MEDS: Azithromycin 500 MG in D5% in Water 250 ML IVPB SCH (10:48)
[2017-08-18 11:37] VITALS: BP 116/74
--- NOTE | 2017-08-18 13:01 | Discharge Summary ---
- NOTES TO OUTPATIENT PROVIDER Notes to Outpatient Provider: Patient admitted with diabetic ketoacidosis and pneumonia. Doing well now after treatment. Needs to follow up with primary care provider for better management of diabetes. Orders not resulted at time of discharge: Pending orders 08/15/17 23:47 Culture,Blood [BC] Routine 08/19/17 04:00 Basic Metabolic Panel AM 0400 CBC [Complete Blood Count] [HEME] AM 0400 08/20/17 04:00 Basic Metabolic Panel AM 0400 CBC [Complete Blood Count] [HEME] AM 0400 08/21/17 04:00 Basic Metabolic Panel AM 0400 CBC [Complete Blood Count] [HEME] AM 0400 08/22/17 04:00 Basic Metabolic Panel AM 0400 CBC [Complete Blood Count] [HEME] AM 0400 Date of Encounter: 08/18/17 Time of Encounter: 10:20 - Discharge Diagnosis (1) DKA (diabetic ketoacidosis) Priority: Primary Status: Acute Qualifiers: Diabetes mellitus type: type 1 Diabetes mellitus complication detail: without coma Qualified Code(s): E10.10 - Type 1 diabetes mellitus with ketoacidosis without coma (2) Acute renal failure Priority: Secondary Status: Resolved Qualifiers: Acute renal failure type: unspecified Qualified Code(s): N17.9 - Acute kidney failure, unspecified (3) Acute hyperkalemia Priority: Secondary Status: Resolved (4) Tobacco use disorder Priority: Secondary Status: Chronic (5) DVT prophylaxis Priority: Secondary Status: Acute (6) Community acquired bacterial pneumonia Priority: Secondary Status: Acute (7) Protein-calorie malnutrition Priority: Secondary Status: Chronic Qualifiers: Protein-calorie malnutrition severity: moderate Qualified Code(s): E44.0 - Moderate protein-calorie malnutrition Hospital course: Mr. Gong is a 42 year old male Patient with type 1 diabetes who was hospitalized here with acute diabetic ketoacidosis and pneumonia. He had presented to the ER with complaints of nausea and vomiting. He was also having abdominal pain on presentation. He was therefore based on hospital and treated per DKA protocol. He was also given IV antibiotics for his pneumonia. His blood sugars improved with the use of intravenous insulin per DKA protocol. He was hyperkalemic on presentation and this also resolved. He is now tolerating oral diet and his blood sugars are better controlled. Most likely his DKA began due to him developing pneumonia. He however has not been following up with any physician for his diabetes. This is due to insurance issues. He has been strongly encouraged to seek a primary care provider and follow-up as early as possible to better manage his diabetes. In the meantime I am increasing his insulin 70/30 dose to 25 units twice daily. He agrees to monitor his blood sugars daily. He did have acute kidney injury on presentation and this has also resolved. He will be discharged on oral antibiotics to complete treatment for pneumonia. Discharge discussed with: patient, family, nurse - Time Spent with Patient Total time spent providing and/or coordinating discharge services: Greater than 30 minutes (35 min) - Discharge Medications Prescriptions: Insulin NPH/REG 70/30 [HumuLIN 70/30 VIAL] 25 unit SQ BID #1 vial levoFLOXacin [Levaquin] 500 mg PO DAILY #5 tablet Home Medications: Insulin NPH/REG 70/30 [HumuLIN 70/30 VIAL] 25 unit SQ BID #1 vial 08/18/17 [Rx] levoFLOXacin [Levaquin] 500 mg PO DAILY #5 tablet 08/18/17 [Rx] Allergies/Adverse Reactions: 3 Allergy/AdvReac Type Severity Reaction Status Date / Time No Known Allergies Allergy Verified 08/16/17 10:51 Date of admission: 08/15/17 23:35 Primary care physician: Garth Fortune Discharging clinician: Theresa Jacobs Anticipated date of discharge: 08/18/17 - Constitutional Vitals: Temp Pulse Resp BP Pulse Ox 98.3 F 92 16 116/74 94 08/18/17 11:35 08/18/17 11:51 08/18/17 11:35 08/18/17 11:35 08/18/17 11:35 General appearance: Present: cooperative, A&O X 3, answers questions appropriately - Respiratory Respiratory exam: Present: CTAB. Absent: accessory muscle use, rales, rhonchi, wheezes - Cardiovascular Cardiovascular exam: Present: RRR, +S1, +S2. Absent: diastolic murmur, gallop, rubs, systolic murmur - GI/Abdominal GI/Abdominal exam: Present: normal bowel sounds, soft, no peritoneal signs. Absent: distended, tenderness - Extremities Exam Extremities exam: Present: warm, radial pulses palpable and symmetrical. Absent : calf tenderness, cyanotic, pedal edema - Skin Skin exam: Present: dry, intact - Patient Status Disposition: Home, Self-Care Condition: Good Functional capacity at discharge: independent ambulation Overall status at discharge: patient is progressing back to baseline - Discharge Instructions Instructions: Diabetes Mellitus Type 2 in Adults (DC), Pneumonia (DC) Follow Up With: Garth Fortune MD [Primary Care Provider] - 08/25/17 9:00 am () Forms: Work/School Release - Diet and Activity Activity: increase activity as tolerated Diet: diabetic diet, low fat, low cholesterol, low salt diet - VTE Documentation of Mechanical Device: Intermittent pneumatic compression device
== END 2017-08-18 14:06 | disposition home or self-care (01) | DRG 637 ==
LOC: EMEROO 22:10 → SUATTDRO 23:35 → 2NNU 23:35
PROVIDERS: ADMIT Internal Medicine; ATTEND Internal Medicine